=== PATIENT | male | born 1960 | race American Indian/Alaskan Native ===

== ENCOUNTER 2020-03-12 19:32 | Inpatient (IN) | payer OTHER ==
[2020-03-12] MEDS ORDERED: dexAMETHasone 20 MG/5 ML VIAL IV ONE (20:21)
[2020-03-12] MEDS ORDERED: IPRATROPIUM 0.02% NEBU 2.5 ML IH ONE (20:21)
[2020-03-12] MEDS ORDERED: MAGNESIUM SULFATE 2 GM/50 ML BAG IV ONE (20:21)
[2020-03-12] MEDS ORDERED: ALBUTEROL 2.5 MG/3 ML NEBU IH ONE ×2 (20:21→23:27)
--- NOTE | 2020-03-12 20:39 | Emergency Department Report ---
ED Shortness of Breath HPI - General Chief Complaint: Dyspnea/Respdistress Stated Complaint: DIFFICULTY IN BREATHING Time Seen by Provider: 03/12/20 20:32 Source: patient Mode of arrival: Ambulatory Limitations: No Limitations - History of Present Illness Initial Comments: Patient is 59 years old male with history of asthma and COPD. Patient presented to the ER complaining of shortness of breath and difficulty breathing and wheezing for the last 2 days. Patient stated that he has been using his albuterol with no improvement. Patient denies any chest pain, fever or chills. Patient stated that he has been intubated twice before. Patient with si gnificant respiratory distress and using accessory muscles. Patient immediately started on albuterol, Atrovent, Decadron and magnesium sulfate. MD Complaint: shortness of breath, cough -: days(s) (2) Severity: severe Known History Of: asthma - Related Data Allergies Allergy/AdvReac Type Severity Reaction Status Date / Time No Known Allergies Allergy Unverified 03/12/20 20:12 ED Review of Systems ROS: Stated complaint: DIFFICULTY IN BREATHING Other details as noted in HPI Comment: All other systems reviewed and negative Constitutional: denies: chills, fever Respiratory: cough, shortness of breath, SOB with exertion, SOB at rest, wheezing. denies: orthopnea, stridor Cardiovascular: denies: chest pain, palpitations Gastrointestinal: denies: abdominal pain, nausea, vomiting Musculoskeletal: denies: back pain Neurological: denies: headache, weakness ED Past Medical Hx - Past Medical History Previous Medical History?: Yes Hx Asthma: Yes Hx COPD: Yes - Surgical History Past Surgical History?: No - Social History Smoking Status: Current Some Day Smoker ED Physical Exam - General Limitations: No Limitations General appearance: alert, in distress - Head Head exam: Present: atraumatic, normocephalic, normal inspection - Eye Eye exam: Present: normal appearance, PERRL - ENT ENT exam: Present: normal exam, normal orophraynx, mucous membranes moist - Neck Neck exam: Present: normal inspection, full ROM. Absent: tenderness, meningismus - Respiratory Respiratory exam: Present: respiratory distress, wheezes, rales, rhonchi, accessory muscle use, decreased breath sounds, prolonged expiratory. Absent: stridor - Cardiovascular Cardiovascular Exam: Present: regular rate, normal rhythm, normal heart sounds - GI/Abdominal GI/Abdominal exam: Present: soft, normal bowel sounds. Absent: distended, tenderness, guarding, rebound, rigid, organomegaly, mass, bruit, pulsatile mass, hernia - Extremities Exam Extremities exam: Present: normal inspection, full ROM, normal capillary refill. Absent: tenderness, pedal edema, joint swelling, calf tenderness - Back Exam Back exam: Present: normal inspection, full ROM. Absent: CVA tenderness (R), CVA tenderness (L) - Neurological Exam Neurological exam: Present: alert, oriented X3, CN II-XII intact, normal gait - Psychiatric Psychiatric exam: Present: normal mood - Skin Skin exam: Present: warm, intact, normal color ED Course Vital Signs 03/12/20 03/12/20 20:44 20:53 Pulse Rate 85 Pulse Rate [ 89 Bilateral Throughout] Respiratory 20 Rate Respiratory 20 Rate [Bilateral Throughout] Blood Pressure 135/89 [Left] O2 Sat by Pulse 94 Oximetry ED Medical Decision Making - Lab Data Result diagrams: 03/12/20 20:33 03/12/20 20:33 - Radiology Data Radiology results: report reviewed - Medical Decision Making Patient is 59 years old male with history of asthma and COPD. Patient presented to the ER complaining of shortness of breath and difficulty breathing and wheezing for the last 2 days. Patient stated that he has been using his albuterol with no improvement. Patient denies any chest pain, fever or chills. Patient stated that he has been intubated twice before. Patient with significant respiratory distress and using accessory muscles. Patient immediately started on albuterol, Atrovent, Decadron and magnesium sulfate. Labs reviewed and is unremarkable. Chest x-ray showed early infiltrate in the right lower lobe. Patient received Rocephin and Zithromax. Patient stated that he is feeling better but his oxygen saturation on room air is in the upper 80s and lower 90. I discussed the patient with Dr. Adan, he agreed to admit the patient to medical service for further management. Critical Care Time: Yes Critical care time in (mins) excluding proc time.: 30 Critical care attestation.: If time is entered above; I have spent that time in minutes in the direct care of this critically ill patient, excluding procedure time. ED Disposition Clinical Impression: Right lower lobe pneumonia, Asthma exacerbation, Suspected COVID-19 virus infection Disposition: OP ADMIT IP TO THIS HOSP Is pt being admited?: Yes Condition: Stable Instructions: Bacterial Pneumonia (ED) Referrals: PRIMARY CARE, [Primary Care Provider] - 3-5 Days
[2020-03-12 20:44] LABS: Eosinophils # (Auto) 0.6 K/mm3 (0.0-0.4); Eosinophils % (Auto) 12.6 % (0.0-4.3); Hematocrit 40.3 % (35.5-45.6); Hemoglobin 13.1 gm/dl (11.8-15.2); Lymphocytes # (Auto) 1.7 K/mm3 (1.2-5.4); Lymphocytes % (Auto) 39.4 % (13.4-35.0); Mean Corpuscular HGB Conc 32 % (32-34); Mean Corpuscular Volume 92 fl (84-94); Monocytes # (Auto) 0.4 K/mm3 (0.0-0.8); Monocytes % (Auto) 8.1 % (0.0-7.3); Platelet Count 263 K/mm3 (140-440); Red Blood Count 4.37 M/mm3 (3.65-5.03); Red Cell Distribution Width 15.2 % (13.2-15.2)
[2020-03-12 21:03] LABS: Alanine Aminotransferase 17 units/L (7-56); Albumin 3.6 g/dL (3.9-5); BUN/Creatinine Ratio 6; Blood Urea Nitrogen 7 mg/dL (9-20); Calcium 8.6 mg/dL (8.4-10.2); Hemolysis Index 12
--- NOTE | 2020-03-12 22:09 | XRay Report ---
CHEST 1 VIEW 03/12/2020 9:25 PM INDICATION / CLINICAL INFORMATION: SOB. COMPARISON: None available. FINDINGS: SUPPORT DEVICES: None. HEART / MEDIASTINUM: No significant abnormality. LUNGS / PLEURA: There is minimal patchy parenchymal opacity in the left lung base. There small calcif ied granulomata in the right upper lobe. No pneumothorax. ADDITIONAL FINDINGS: No significant additional findings. IMPRESSION: 1. There is minimal patchy parenchymal opacity in the right lung base which could represent atelectas is or evolving pneumonia. Signer Name: Henrique Talley MD Signed: 03/12/2020 10:05 PM Workstation Name: [id number]
[2020-03-12] MEDS ORDERED: cefTRIAXone/NS 1 GM/50 ML 1 GM/50 ML BAG IV ONE (23:26)
[2020-03-12] MEDS ORDERED: AZITHROMYCIN 500 MG in SODIUM CHLORIDE 0.9% 250ML 250 ML IV ONE (23:26)
[2020-03-13] MEDS ORDERED: ACETAMINOPHEN 325 MG TAB PO PRN
[2020-03-13] MEDS ORDERED: MAGNESIUM HYDROXIDE (MOM) ORAL LIQD UDC PO PRN
[2020-03-13] MEDS ORDERED: ONDANSETRON 4 MG/2 ML INJ IV PRN
[2020-03-13] MEDS ORDERED: SODIUM CHLORIDE 0.9% 1000 ML 1,000 ML IV SCH
[2020-03-13] MEDS ORDERED: MORPHINE 2 MG/1 ML INJ IV PRN
[2020-03-13] MEDS ORDERED: cefTRIAXone/NS 2 GM/100 ML 2 GM/100 ML BAG IV SCH
--- NOTE | 2020-03-13 00:17 | History and Physical Report ---
History of Present Illness Date of examination: 03/13/20 Date of admission: 03/13/20 Chief complaint: Shortness of Breath History of present illness: 59-year-old male with known history of asthma COPD presenting to the emergency room today complaining of shortness of breath and wheezing which has been ongoing for the past 2 days. He has been using his albuterol inhaler at home without any significant improvement. He denies any fever or chills, no chest pain, no headache or dizziness, no nausea or vomiting, no abdominal pain, no hematuria or dysuria. Patient denies any sick contacts and no recent travel. Denies any contact with anyone with COVID-19. Upon arrival in the emergency room he was in mild respiratory distress using his accessory muscles. He was given a DuoNeb nebulizing treatments, IV magnesium sulfate and IV Decadron with some improvement. Patient has been intubated twice in the past. Work-up in the emergency room today, chest x-ray reveals: There is minimal patchy parenchymal opacity in the right lung base which could represent atelectasis or evolving pneumonia. Patient admitted with asthma exacerbation and or underlying pneumonia. We also rule out for COVID-19. Past History Past Medical History: COPD, other (Asthma) Past Surgical History: No surgical history Social history: no significant social history Family history: no significant family history Medications and Allergies Allergies Allergy/AdvReac Type Severity Reaction Status Date / Time No Known Allergies Allergy Verified 03/12/20 23:37 Active Meds: Active Medications Acetaminophen (Acetaminophen 325 Mg Tab) 650 mg PO Q4H PRN PRN Reason: Pain MILD(1-3)/Fever >100.5/VELEZ Albuterol/Ipratropium (Ipratropium/Albuterol Sulfate 3 Ml Ampul.Neb) 1 ampul IH Q6HRT YARELI Enoxaparin Sodium (Enoxaparin 40 Mg/0.4 Ml Inj) 40 mg SUB-Q QDAY@2200 YARELI; Protocol Azithromycin 500 mg/ Sodium (Chloride) 250 mls @ 250 mls/hr IV ONCE ONE; Protocol Stop: 03/13/20 00:25 Sodium Chloride (Nacl 0.9% 1000 Ml) 1,000 mls @ 75 mls/hr IV DIRECT YARELI Ceftriaxone Sodium (Rocephin/Ns 2 Gm/100 Ml) 2 gm in 100 mls @ 200 mls/hr IV Q24H YARELI; Protocol Azithromycin 500 mg/ Sodium (Chloride) 250 mls @ 250 mls/hr IV Q24H YARELI; Protocol Magnesium Hydroxide (Magnesium Hydroxide (Mom) Oral Liqd Udc) 30 ml PO Q4H PRN PRN Reason: Constipation Methylprednisolone Sodium Succinate (Methylprednisolone Sod Succinate 40 Mg/1 Ml Inj) 40 mg IV Q8HR YARELI Morphine Sulfate (Morphine 2 Mg/1 Ml Inj) 2 mg IV Q4H PRN PRN Reason: Pain, Moderate (4-6) Ondansetron HCl (Ondansetron 4 Mg/2 Ml Inj) 4 mg IV Q8H PRN PRN Reason: Nausea And Vomiting Sodium Chloride (Sodium Chloride 0.9% 10 Ml Flush Syringe) 10 ml IV BID YARELI Sodium Chloride (Sodium Chloride 0.9% 10 Ml Flush Syringe) 10 ml IV PRN PRN PRN Reason: LINE FLUSH Review of Systems Constitutional: no fever, no chills Ears, nose, mouth and throat: no nasal congestion, no sore throat Cardiovascular: no chest pain, no palpitations Respiratory: cough, shortness of breath, wheezing Gastrointestinal: no abdominal pain, no nausea, no vomiting, no diarrhea Genitourinary Male: no dysuria, no hematuria, no flank pain, no nocturia Musculoskeletal: no neck pain, no low back pain Integumentary: no rash, no pruritis Neurological: no headaches, no confusion Psychiatric: no anxiety, no depression Exam - Constitutional Vitals: Temp Pulse Resp BP Pulse Ox 89 20 135/89 94 03/12/20 20:53 03/12/20 20:53 03/12/20 20:44 03/12/20 20:44 General appearance: Present: no acute distress, well-nourished - EENT Eyes: Present: PERRL, EOM intact. Absent: scleral icterus ENT: hearing intact, clear oral mucosa, dentition normal - Neck Neck: Present: supple, normal ROM - Respiratory Respiratory effort: normal Respiratory: bilateral: wheezing - Cardiovascular Rhythm: regular Heart Sounds: Present: S1 & S2. Absent: gallop, systolic murmur, diastolic murmur, rub - Extremities Extremities: no ischemia, pulses intact, pulses symmetrical, No edema, normal temperature, normal color, Full ROM Peripheral Pulses: within normal limits - Abdominal General gastrointestinal: Present: soft, non-tender, non-distended, normal bowel sounds. Absent: mass - Integumentary Integumentary: Present: clear, warm, dry. Absent: rash - Musculoskeletal Musculoskeletal: strength equal bilaterally - Psychiatric Psychiatric: appropriate mood/affect, intact judgment & insight, memory intact, cooperative - Neurologic Neurologic: CNII-XII intact, no focal deficits, moves all extremities Results - Labs CBC & Chem 7: 03/12/20 20:33 03/12/20 20:33 Labs: Abnormal lab results 03/12/20 03/12/20 Range/Units 20:33 20:33 WBC 4.4 L (4.5-11.0) K/mm3 Lymph % (Auto) 39.4 H (13.4-35.0) % [place] % (Auto) 8.1 H (0.0-7.3) % Eos % (Auto) 12.6 H (0.0-4.3) % Eos # (Auto) 0.6 H (0.0-0.4) K/mm3 Seg Neutrophils % 38.9 L (40.0-70.0) % Seg Neutrophils # 1.7 L (1.8-7.7) K/mm3 Chloride 108.1 H (98-107) mmol/L BUN 7 L (9-20) mg/dL Glucose 108 H (75-100) mg/dL Total Protein 6.0 L (6.3-8.2) g/dL Albumin 3.6 L (3.9-5) g/dL Assessment and Plan - Patient Problems (1) Asthma exacerbation Current Visit: Yes Status: Acute Plan to address problem: Patient placed on nebulizing treatments and IV steroids. We will also keep O2 saturation greater or equal to 94%. (2) Right lower lobe pneumonia Current Visit: Yes Status: Acute Plan to address problem: We will place patient on empiric IV antibiotics. Will await culture results. (3) Suspected COVID-19 virus infection Current Visit: Yes Status: Acute Plan to address problem: We will place patient on isolation precautions. We await COVID-19 testing. Consult placed to infectious disease for evaluation. (4) DVT prophylaxis Current Visit: Yes Status: Acute Plan to address problem: Patient placed on subcutaneous Lovenox. (5) Full code status Current Visit: Yes Status: Acute Plan to address problem: Patient is a full code
[2020-03-13] MEDS: IPRATROPIUM/ALBUTEROL SULFATE 3 ML AMPUL.NEB IH SCH ×5 (01:23→19:41)
[2020-03-13 04:56] LABS: C-Reactive Protein 0.2 mg/dL (0.00-1.30)
[2020-03-13] MEDS ORDERED: methylPREDNISolone Sod Succinate 40 MG/1 ML INJ IV SCH ×2 (06:00→14:00)
--- NOTE | 2020-03-13 13:44 | Consultation ---
History of Present Illness Consult date: 03/13/20 Requesting physician: MEREDITH JACOBO Reason for consult: hypoxemia History of present illness: 59 y/o male admitted with acute respiratory failure, concern for COVID. Has a history of asthma and has been intubated before. Has never been seen at this facility. Past History Past Medical History: COPD, other (Asthma) Past Surgical History: No surgical history Social history: no significant social history Family history: no significant family history Medications and Allergies Allergies Allergy/AdvReac Type Severity Reaction Status Date / Time No Known Allergies Allergy Verified 03/12/20 23:37 Active Meds: Active Medications Acetaminophen (Acetaminophen 325 Mg Tab) 650 mg PO Q4H PRN PRN Reason: Pain MILD(1-3)/Fever >100.5/VELEZ Albuterol/Ipratropium (Ipratropium/Albuterol Sulfate 3 Ml Ampul.Neb) 1 ampul IH Q6HRT YARELI Last Admin: 03/13/20 08:32 Dose: 1 ampul Documented by: Azithromycin (Azithromycin 250 Mg Tab) 500 mg PO QHS YARELI Stop: 03/16/20 22:01 Enoxaparin Sodium (Enoxaparin 40 Mg/0.4 Ml Inj) 40 mg SUB-Q QDAY@2200 YARELI; Protocol Sodium Chloride (Nacl 0.9% 1000 Ml) 1,000 mls @ 75 mls/hr IV DIRECT YARELI Ceftriaxone Sodium (Rocephin/Ns 2 Gm/100 Ml) 2 gm in 100 mls @ 200 mls/hr IV Q24HR@2200 YARELI; Protocol Last Admin: 03/13/20 05:39 Dose: 200 mls/hr Documented by: Magnesium Hydroxide (Magnesium Hydroxide (Mom) Oral Liqd Udc) 30 ml PO Q4H PRN PRN Reason: Constipation Methylprednisolone Sodium Succinate (Methylprednisolone Sod Succinate 40 Mg/1 Ml Inj) 60 mg IV Q6HR YARELI Morphine Sulfate (Morphine 2 Mg/1 Ml Inj) 2 mg IV Q4H PRN PRN Reason: Pain, Moderate (4-6) Ondansetron HCl (Ondansetron 4 Mg/2 Ml Inj) 4 mg IV Q8H PRN PRN Reason: Nausea And Vomiting Sodium Chloride (Sodium Chloride 0.9% 10 Ml Flush Syringe) 10 ml IV BID YARELI Sodium Chloride (Sodium Chloride 0.9% 10 Ml Flush Syringe) 10 ml IV PRN PRN PRN Reason: LINE FLUSH Physical Examination Vital signs: Vital Signs Pulse Resp BP Pulse Ox 85 20 135/89 94 03/12/20 20:44 03/12/20 20:44 03/12/20 20:44 03/12/20 20:44 Results - Laboratory Findings CBC and BMP: 03/12/20 20:33 12 00:31 PT/INR, D-dimer D-Dimer 180.27 ng/mlDDU (0-234) 03/13/20 00:31 Abnormal lab findings: Abnormal Labs 03/12/20 03/12/20 12 20:33 20:33 00:31 WBC 4.4 L Lymph % (Auto) 39.4 H [place] % (Auto) 8.1 H Eos % (Auto) 12.6 H Eos # (Auto) 0.6 H Seg Neutrophils % 38.9 L Seg Neutrophils # 1.7 L Chloride 108.1 H BUN 7 L Glucose 108 H 157 H Lactate Dehydrogenase 222 H Total Protein 6.0 L Albumin 3.6 L Assessment and Plan 59 y/o male with acute respiratory failure with prior history of asthma and prior intubations also concern for possible COVID 1. Prone as tolerated during the day, and sleep prone at night 2. Agree with steroids but increased to 60q6 3. If puffers are available please start albuterol q4 hours scheduled puffers. If COVID is negative will put on scheduled nebs
[2020-03-13] MEDS ORDERED: methylPREDNISolone Sod Succinate 125 MG/2 ML INJ IV SCH (14:00)
--- NOTE | 2020-03-13 15:00 | Event Note ---
Date: 03/13/20 59-year-old male with asthma/COPD admitted with cough and wheezing. COVID-19 test is negative, no fever or leukocytosis. Ferritin, CRP also normal. Defer management to pulmonary. ID will sign off. Deysi Fagan MD, FACP [facility] ([facility] O: [phone] F: [phone]
[2020-03-13] MEDS: methylPREDNISolone Sod Succinate 125 MG/2 ML INJ IV SCH ×2 (15:53→21:10)
--- NOTE | 2020-03-13 16:40 | Progress Note ---
Assessment and Plan - Patient Problems (1) Suspected COVID-19 virus infection Current Visit: Yes Status: Acute Plan to address problem: 03/13 COVID-19 PCR negative (2) Asthma exacerbation Current Visit: Yes Status: Acute Plan to address problem: Pulmonary hygiene Nebulizer treatments IV steroids Scheduled albuterol Continuous SPO2 monitoring Pulmonology consulted, patient recommendations (3) Right lower lobe pneumonia Current Visit: Yes Status: Acute Plan to address problem: 03/12 CXR shows minimal patchy parenchymal opacity in the right lung base which could represent atelectasis or evolving pneumonia Empiric antibiotics 03/12 culture pending (4) Tobacco abuse Current Visit: Yes Status: Chronic Plan to address problem: Tobacco cessation education Consider NicoDerm Patch if needed while inpatient (5) Cocaine abuse Current Visit: Yes Status: Chronic Plan to address problem: Patient states that he last used last week and uses occasionally Monitor for signs symptoms of withdrawal Supportive care Cessation education completed (6) COPD (chronic obstructive pulmonary disease) Current Visit: Yes Status: Chronic Plan to address problem: Patient has a history of COPD Continue home pulmonary regimen when available Patient states that he has a skip locator that follows him, will need to follow-up upon discharge (7) DVT prophylaxis Current Visit: Yes Status: Acute Plan to address problem: Lovenox subcu SCD to bilateral lower extremities while in bed (8) Hyperchloremia Current Visit: Yes Status: Acute Plan to address problem: Presented with a chloride of 108.1 Trend BMP S/p maintenance IV fluids normal saline (9) Leukopenia Current Visit: Yes Status: Acute Plan to address problem: 03/12 WBC 4.4 Trend CBC History Interval history: 59-year-old male with asthma with two past intubations, current cocaine user (last use last week), tobacco abuse (less than 5 cigarettes/day) and COPD who presented to the emergency room on 03/12 complaining of shortness of breath and wheezing which has been ongoing for the past 2 days and reports using his albuterol inhaler at home without any significant improvement. Upon arrival in the emergency room he was in mild respiratory distress using his accessory musc les and was given DuoNeb nebulizing treatments, IV magnesium sulfate and IV Decadron with some improvement. Work-up in the emergency room included a chest x-ray which showed minimal patchy parenchymal opacity in the right lung base which could represent atelectasis or evolving pneumonia. Patient was admitted to the hospital service with asthma exacerbation and underlying pneumonia and was a Covid PUI. Infectious disease and pulmonology were consulted. On 03/13 patient's COVID-19 PCR resulted as negative. This time my examination patient is on room air and states that he feels much better. Patient is ready to go home. Hospitalist Physical - Constitutional Vitals: Temp Pulse Resp BP Pulse Ox 98.3 F 85 20 131/80 99 03/13/20 05:41 03/13/20 14:55 03/13/20 15:40 03/13/20 05:41 03/13/20 15:40 General appearance: Present: no acute distress, well-nourished - EENT Eyes: Present: PERRL, EOM intact ENT: clear oral mucosa, poor dentition - Neck Neck: Present: supple, normal ROM - Respiratory Respiratory effort: normal Respiratory: bilateral: wheezing - Cardiovascular Rhythm: regular Heart Sounds: Present: S1 & S2. Absent: systolic murmur, diastolic murmur - Extremities Extremities: no ischemia, pulses intact, pulses symmetrical, No edema, normal temperature, normal color, Full ROM Peripheral Pulses: within normal limits - Abdominal General gastrointestinal: soft, non-tender, non-distended, normal bowel sounds - Integumentary Integumentary: Present: clear, warm, dry - Psychiatric Psychiatric: appropriate mood/affect, cooperative - Neurologic Neurologic: CNII-XII intact, no focal deficits, moves all extremities - Allied Health Allied health notes reviewed: nursing Results - Labs CBC & Chem 7: 03/12/20 20:33 03/13/20 00:31 Labs: Laboratory Last Values WBC 4.4 K/mm3 (4.5-11.0) L 03/12/20 20:33 RBC 4.37 M/mm3 (3.65-5.03) 03/12/20 20:33 Hgb 13.1 gm/dl (11.8-15.2) 03/12/20 20:33 Hct 40.3 % (35.5-45.6) 03/12/20 20:33 MCV 92 fl (84-94) 03/12/20 20:33 MCH 30 pg (28-32) 03/12/20 20:33 MCHC 32 % (32-34) 03/12/20 20:33 RDW 15.2 % (13.2-15.2) 03/12/20 20:33 Plt Count 263 K/mm3 (140-440) 03/12/20 20:33 Lymph % (Auto) 39.4 % (13.4-35.0) H 03/12/20 20:33 [place] % (Auto) 8.1 % (0.0-7.3) H 03/12/20 20:33 Eos % (Auto) 12.6 % (0.0-4.3) H 03/12/20 20:33 Baso % (Auto) 1.0 % (0.0-1.8) 03/12/20 20: Lymph # (Auto) 1.7 K/mm3 (1.2-5.4) 03/12/20 20: [place] # (Auto) 0.4 K/mm3 (0.0-0.8) 03/12/20 20: Eos # (Auto) 0.6 K/mm3 (0.0-0.4) H 03/12/20 20: Baso # (Auto) 0.0 K/mm3 (0.0-0.1) 03/12/20 20: Seg Neutrophils % 38.9 % (40.0-70.0) L 03/12/20 20: Seg Neutrophils # 1.7 K/mm3 (1.8-7.7) L 03/12/20 20:33 D-Dimer 180.27 ng/mlDDU (0-234) 03/13/20 00:31 Sodium 140 mmol/L (137-145) 03/12/20 20:33 Potassium 3.6 mmol/L (3.6-5.0) 03/12/20 20: Chloride 108.1 mmol/L (98-107) H 03/12/20 20:33 Carbon Dioxide 22 mmol/L (22-30) 03/12/20 20:33 Anion Gap 14 mmol/L 03/12/20 20:33 BUN 7 mg/dL (9-20) L 03/12/20 20:33 Creatinine 1.2 mg/dL (0.8-1.3) 03/12/20 20:33 Estimated GFR > 60 ml/min 03/12/20 20: BUN/Creatinine Ratio 6 % 03/12/20 20:33 Glucose 157 mg/dL (75-100) H 03/13/20 00:31 Calcium 8.6 mg/dL (8.4-10.2) 03/12/20 20:33 Ferritin 132.2 ng/mL (30.0-300.0) 03/13/20 00:31 Total Bilirubin 0.20 mg/dL (0.1-1.2) 03/12/20 20:33 AST 20 units/L (5-40) 03/12/20 20:33 ALT 17 units/L (7-56) 03/12/20 20:33 Alkaline Phosphatase 74 units/L (35-129) 03/12/20 20:33 Lactate Dehydrogenase 222 units/L (91-180) H 03/13/20 00:31 C-Reactive Protein 0.20 mg/dL (0.00-1.30) 03/13/20 00:31 Total Protein 6.0 g/dL (6.3-8.2) L 03/12/20 20:33 Albumin 3.6 g/dL (3.9-5) L 03/12/20 20:33 Albumin/Globulin Ratio 1.5 % 03/12/20 20:33 Procalcitonin < 0.05 ng/mL (<0.15) 03/13/20 00:31 Coronavirus (PCR) Negative (Negative) 03/13/20 Unknown Microbiology: Microbiology 03/13/20 02:31 Peripheral/Venous Blood Culture - Preliminary Culture in Progress 03/13/20 00:31 Peripheral/Venous Blood Culture - Preliminary Culture in Progress Almanza/IV: IV Catheter Type [Left Hand] INT / Saline Lock Active Medications - Current Medications Current Medications: Generic Name Dose Route Start Last Admin Trade Name Freq PRN Reason Stop Dose Admin Acetaminophen 650 mg 03/13/20 00:00 Acetaminophen 325 Mg Tab PO Q4H PRN Pain MILD(1-3)/Fever >100.5/VELEZ Albuterol/Ipratropium 1 ampul 03/13/20 02:00 03/13/20 14:55 Ipratropium/Albuterol Sulfate 3 Ml Ampul.Neb IH 1 ampul Q6HRT YARELI Administration Azithromycin 500 mg 03/13/20 22:00 Azithromycin 250 Mg Tab PO 03/16/20 22:01 QHS YARELI Enoxaparin Sodium 40 mg 03/13/20 22:00 Enoxaparin 40 Mg/0.4 Ml Inj SUB-Q QDAY@2200 [facility] Protocol Sodium Chloride 1,000 mls @ 75 mls/hr 03/13/20 00:00 Nacl 0.9% 1000 Ml IV DIRECT YARELI Ceftriaxone Sodium 2 gm in 100 mls @ 200 mls/hr 03/13/20 00:00 03/13/20 05:39 Rocephin/Ns 2 Gm/100 Ml IV 200 mls/hr Q24HR@2200 [facility] Administration Protocol Magnesium Hydroxide 30 ml 03/13/20 00:00 Magnesium Hydroxide (Mom) Oral Liqd Udc PO Q4H PRN Constipation Methylprednisolone Sodium Succinate 60 mg 03/13/20 14:00 03/13/20 15:53 Methylprednisolone Sod Succinate 125 Mg/2 Ml Inj IV 60 mg Q6HR [facility] Administration Morphine Sulfate 2 mg 03/13/20 00:00 Morphine 2 Mg/1 Ml Inj IV Q4H PRN Pain, Moderate (4-6) Ondansetron HCl 4 mg 03/13/20 00:00 Ondansetron 4 Mg/2 Ml Inj IV Q8H PRN Nausea And Vomiting Sodium Chloride 10 ml 03/13/20 10:00 03/13/20 15:52 Sodium Chloride 0.9% 10 Ml Flush Syringe IV Not Given BID [facility] Sodium Chloride 10 ml 03/13/20 00:00 Sodium Chloride 0.9% 10 Ml Flush Syringe IV PRN PRN LINE FLUSH
[2020-03-13] MEDS ORDERED: ENOXAPARIN 40 MG/0.4 ML INJ SUB-Q SCH (22:00)
[2020-03-13] MEDS ORDERED: AZITHROMYCIN 500 MG in SODIUM CHLORIDE 0.9% 250ML 250 ML IV SCH (22:00)
[2020-03-13] MEDS ORDERED: AZITHROMYCIN 250 MG TAB PO SCH (22:00)
[2020-03-14] MEDS: methylPREDNISolone Sod Succinate 125 MG/2 ML INJ IV SCH ×3 (00:24→10:38)
[2020-03-14] MEDS: IPRATROPIUM/ALBUTEROL SULFATE 3 ML AMPUL.NEB IH SCH ×4 (02:31→21:39)
[2020-03-14 06:32] LABS: Hematocrit 37.3 % (35.5-45.6); Hemoglobin 12.3 gm/dl (11.8-15.2); Mean Corpuscular HGB Conc 33 % (32-34); Mean Corpuscular Volume 90 fl (84-94); Platelet Count 281 K/mm3 (140-440); Red Blood Count 4.13 M/mm3 (3.65-5.03); Red Cell Distribution Width 15.2 % (13.2-15.2)
[2020-03-14 06:42] LABS: BUN/Creatinine Ratio 12; Blood Urea Nitrogen 13 mg/dL (9-20); Hemolysis Index 7; INR 1.01 (0.87-1.13)
[2020-03-14 10:09] LABS: Total Cells Counted 100
[2020-03-14 10:11] LABS: RBC Morphology Normal
[2020-03-14 10:12] LABS: Platelet Estimate Consistent w Auto
[2020-03-14] MEDS ORDERED: NICOTINE 7 MG/24 HR PATCH TD SCH (12:00)
--- NOTE | 2020-03-14 12:55 | Progress Note ---
Assessment and Plan 59 y/o male with acute respiratory failure with prior history of asthma and prior intubations also concern for possible COVID 1. COVID negative 2. If IMS wants to discharge would send out on rapid steroid taper and have him resume his home asthma regimen 3. If remains in house please place on BID pulmicort and brovana therapy. Subjective Date of service: 03/14/20 Interval history: COVID is negative. Asthma appears to be stable now. IMS wants to consider discharge. Objective Vital Signs - 12hr 03/14/20 03/14/20 03/14/20 02:34 04:07 07:50 Temperature 98.4 F Pulse Rate 83 Pulse Rate [ 88 82 Bilateral Throughout] Respiratory 20 Rate Respiratory 20 18 Rate [Bilateral Throughout] Blood Pressure 133/79 O2 Sat by Pulse 95 Oximetry CBC and BMP: 03/14/20 05:23 03/14/20 05:23 ABG, PT/INR, D-dimer: PT/INR, D-dimer PT 13.1 Sec. (12.2-14.9) 03/14/20 05:23 INR 1.01 (0.87-1.13) 03/14/20 05:23 D-Dimer 180.27 ng/mlDDU (0-234) 03/13/20 00:31 Abnormal lab findings: Abnormal Labs 03/12/20 03/12/20 03/13/20 20:33 20:33 00:31 WBC 4.4 L Lymph % (Auto) 39.4 H [place] % (Auto) 8.1 H Eos % (Auto) 12.6 H Eos # (Auto) 0.6 H Seg Neutrophils % 38.9 L Lymphocytes % (Manual) Seg Neutrophils # 1.7 L Seg Neutrophils # Man Lymphocytes # (Manual) Chloride 108.1 H BUN 7 L Glucose 108 H 157 H Lactate Dehydrogenase 222 H Total Protein 6.0 L Albumin 3.6 L 03/14/20 03/14/20 05:23 05:23 WBC Lymph % (Auto) [place] % (Auto) Eos % (Auto) Eos # (Auto) Seg Neutrophils % Lymphocytes % (Manual) 3.0 L Seg Neutrophils # Seg Neutrophils # Man 9.3 H Lymphocytes # (Manual) 0.3 L Chloride BUN Glucose 176 H Lactate Dehydrogenase Total Protein Albumin
--- NOTE | 2020-03-14 13:28 | Discharge Summary ---
Providers - Providers Date of Admission: 03/12/20 23:35 Attending physician: PADMINI VILLEDA MD 03/13/20 00:00 Consult to Physician [CONS] Routine Comment: Consulting Provider: GO SEGURA Physician Instructions: Reason For Exam: Asthma, Pneumonia R/O Covid 19 03/13/20 08:57 Consult to Physician [CONS] Routine Comment: Consulting Provider: YESI ASHLEY Physician Instructions: Reason For Exam: COVID PUI Primary care physician: [employer]SULTANT Hospitalization Condition: Stable Hospital course: 59-year-old male with asthma with two past intubations, current cocaine user (last use last week), tobacco abuse (less than 5 cigarettes/day) and COPD who presented to the emergency room on 03/12 complaining of shortness of breath and wheezing which has been ongoing for the past 2 days and reports using his albuterol inhaler at home without any significant improvement. Upon arrival in the emergency room he was in mild respiratory distress using his accessory muscles and was given DuoNeb nebulizing treatments, IV magnesium sulfate and IV Decadron with some improvement. Work-up in the emergency room included a chest x-ray which showed minimal patchy parenchymal opacity in the right lung base which could represent atelectasis or evolving pneumonia. Patient was admitted to the hospital service with asthma exacerbation and underlying pneumonia and was a Covid PUI. Infectious disease and pulmonology were consulted. On 03/13 patient's COVID-19 PCR resulted as negative. Patient will be discharged home with p.o. antibiotics and p.o. steroid taper. He will need to follow-up with his primary care physician and allergy and immunology specialist within 1 to 2 weeks of discharge. Patient verbalized understanding. Assessment and Plan - Patient Problems (1) Suspected COVID-19 virus infection Current Visit: Yes Status: Ruled out Plan to address problem: 03/13 COVID-19 PCR negative (2) Asthma exacerbation Current Visit: Yes Status: Acute Plan to address problem: Resume home pulmonary regimen Will be discharged with a steroid taper (3) Right lower lobe pneumonia Current Visit: Yes Status: Acute Plan to address problem: 03/12 CXR shows minimal patchy parenchymal opacity in the right lung base which could represent atelectasis or evolving pneumonia Will be discharged with p.o. antibiotics 03/12 culture pending (4) Tobacco abuse Current Visit: Yes Status: Chronic Plan to address problem: Tobacco cessation education Continue use of [id number] NicoDerm patch to aid in cessation (5) Cocaine abuse Current Visit: Yes Status: Chronic Plan to address problem: Patient states that he last used last week and uses occasionally Strongly encourage cessation (6) COPD (chronic obstructive pulmonary disease) Current Visit: Yes Status: Chronic Plan to address problem: Patient has a history of COPD Continue home pulmonary regimen Will need to follow-up with home pulmanologist (8) Hyperchloremia Current Visit: Yes Status: Resolved Plan to address problem: Presented with a chloride of 108.1, Cl 104.8 (9) Leukopenia Current Visit: Yes Status: Resolved Plan to address problem: 03/12 WBC 4.4, 03/14 WBC 9.8 Disposition: DC-01 TO HOME OR SELFCARE Time spent for discharge: 35 Core Measure Documentation - Palliative Care Palliative Care/ Comfort Measures: Not Applicable - Core Measures Any of the following diagnoses?: none Exam - Constitutional Vitals: Temp Pulse Resp BP Pulse Ox 98.4 F 82 18 133/79 95 03/14/20 04:07 03/14/20 07:50 03/14/20 07:50 03/14/20 04:07 03/14/20 04:07 General appearance: Present: no acute distress - EENT Eyes: Present: PERRL, EOM intact ENT: hearing decreased, poor dentition - Neck Neck: Present: supple, normal ROM - Respiratory Respiratory effort: normal Respiratory: bilateral: wheezing - Cardiovascular Rhythm: regular Heart Sounds: Present: S1 & S2. Absent: systolic murmur, diastolic murmur - Extremities Extremities: no ischemia, pulses intact, pulses symmetrical, No edema, normal temperature, normal color, Full ROM Peripheral Pulses: within normal limits - Abdominal General gastrointestinal: Present: soft, non-tender, non-distended, normal bowel sounds - Integumentary Integumentary: Present: clear, warm, dry - Musculoskeletal Musculoskeletal: strength equal bilaterally - Psychiatric Psychiatric: appropriate mood/affect, cooperative - Neurologic Neurologic: CNII-XII intact, no focal deficits, moves all extremities - Allied Health Allied health notes reviewed: nursing Plan Activity: advance as tolerated Diet: regular Special Instructions: smoking cessation, other (cocaine abuse cessation) Additional Instructions: Present to nearest emergency department contact your primary care physician for experience worsening symptoms. Follow-up with your primary care physician and allergy and immunology specialist upon discharge. Tobacco and cocaine cessation strongly encouraged. Follow up with: PRIMARY CARE, [Primary Care Provider] - 3-5 Days Prescriptions: Azithromycin [Zithromax TAB] 500 mg PO QHS #2 tablet
[2020-03-14 15:58] VITALS: BP 145/90
== END 2020-03-14 17:30 | disposition home or self-care (01) | DRG 190 ==
LOC: ED 19:32 → 3A 23:35
PROVIDERS: ADMIT Internal Medicine Geriatric Medicine; ATTEND Internal Medicine
DX: J44.0 Chronic obstructive pulmonary disease with (acute) lower respiratory infection (principal); J18.1 Lobar pneumonia, unspecified organism; J45.901 Unspecified asthma with (acute) exacerbation; F17.210 Nicotine dependence, cigarettes, uncomplicated; Z20.828 Contact with and (suspected) exposure to other viral communicable diseases; D72.819 Decreased white blood cell count, unspecified; E87.8 Other disorders of electrolyte and fluid balance, not elsewhere classified; F14.10 Cocaine abuse, uncomplicated; Z71.6 Tobacco abuse counseling
CPT/HCPCS: 36415; 71045; 80048; 80053; 82728; 82947; 83615; 84145; 85007; 85025; 85379; 85610; 86140; 87040; 94640; 94644; 96365; 96367; 96375; 99406; G0378; J0456; J0696; J1100; J1650; J2920; J2930; J3475; J7050; U0003

== ENCOUNTER 2020-04-02 10:08 | Emergency (ER) | payer SELFPAY ==
[2020-04-02] MEDS ORDERED: ALBUTEROL 2.5 MG/3 ML NEBU IH ONE (10:40)
[2020-04-02] MEDS ORDERED: IPRATROPIUM 0.02% NEBU 2.5 ML IH ONE (10:40)
--- NOTE | 2020-04-02 11:05 | Emergency Department Report ---
ED Asthma HPI - General Chief Complaint: Dyspnea/Respdistress Stated Complaint: DIFFICULTY BREATHING Time Seen by Provider: 04/02/20 10:33 Source: patient, EMS Mode of arrival: Stretcher Limitations: No Limitations - History of Present Illness MD Complaint: shortness of breath, wheezing -: week(s) (1) Asthma History: history of frequent attac, history of prior ED visit (admitted 03/12/20) Severity: moderate Context: none known Associated Symptoms: dry cough. denies: fever, chest pain, hemoptysis, leg edema, syncope - Related Data Current Asthma Therapy: inhaled bronchodilator, other (received 2.5mg Albuterol, 125mg Solumedrol and 2g mg prior to arrival ) Previous Rx's Medication Instructions Recorded Last Taken Type Acetaminophen [Acetaminophen TAB] 650 mg PO Q4H PRN tablet 03/14/20 Unknown Rx Azithromycin 500 mg PO DAILY #3 tablet 03/14/20 Unknown Rx Azithromycin [Zithromax TAB] 500 mg PO QHS #2 tablet 03/14/20 Unknown Rx Magnesium Hydroxide [Milk of 30 ml PO Q4H PRN oral.liqd 03/14/20 Unknown Rx Magnesia] Nicotine [Habitrol] 7 mg TD QDAY patch 03/14/20 Unknown Rx predniSONE 10 mg PO QDAY #21 tab 03/14/20 Unknown Rx ALBUTEROL NEB's [Proventil 0.083% 5 mg IH TID PRN #20 neb 04/02/20 Unknown Rx NEBS] Benzonatate [Tessalon Perles] 100 mg PO Q8HR #10 capsule 04/02/20 Unknown Rx DOXYCYCLINE Hyclate [Vibramycin 100 mg PO Q12HR #14 capsule 04/02/20 Unknown Rx CAP] predniSONE 10 mg PO .TAPER #21 tab 04/02/20 Unknown Rx Allergies Allergy/AdvReac Type Severity Reaction Status Date / Time No Known Allergies Allergy Verified 04/02/20 10:42 ED Review of Systems ROS: Stated complaint: DIFFICULTY BREATHING Other details as noted in HPI Comment: All other systems reviewed and negative ED Past Medical Hx - Past Medical History Hx Congestive Heart Failure: No Hx Diabetes: No Hx Asthma: Yes Hx COPD: Yes - Social History Smoking Status: Current Every Day Smoker Substance Use Type: Alcohol, Cocaine - Medications Home Medications: Home Medications Medication Instructions Recorded Confirmed Last Taken Type Acetaminophen [Acetaminophen TAB] 650 mg PO Q4H PRN tablet 03/14/20 Unknown Rx Azithromycin 500 mg PO DAILY #3 tablet 03/14/20 Unknown Rx Azithromycin [Zithromax TAB] 500 mg PO QHS #2 tablet 03/14/20 Unknown Rx Magnesium Hydroxide [Milk of 30 ml PO Q4H PRN oral.liqd 03/14/20 Unknown Rx Magnesia] Nicotine [Habitrol] 7 mg TD QDAY patch 03/14/20 Unknown Rx predniSONE 10 mg PO QDAY #21 tab 03/14/20 Unknown Rx ALBUTEROL NEB's [Proventil 0.083% 5 mg IH TID PRN #20 neb 04/02/20 Unknown Rx NEBS] Benzonatate [Tessalon Perles] 100 mg PO Q8HR #10 capsule 04/02/20 Unknown Rx DOXYCYCLINE Hyclate [Vibramycin 100 mg PO Q12HR #14 capsule 04/02/20 Unknown Rx CAP] predniSONE 10 mg PO .TAPER #21 tab 04/02/20 Unknown Rx ED Physical Exam - General Limitations: No Limitations General appearance: alert, in no apparent distress - Head Head exam: Present: atraumatic, normocephalic - Eye Eye exam: Present: normal appearance - ENT ENT exam: Present: mucous membranes moist - Neck Neck exam: Present: normal inspection - Respiratory Respiratory exam: Present: respiratory distress, wheezes, accessory muscle use, prolonged expiratory. Absent: normal lung sounds bilaterally, rales, rhonchi, chest wall tenderness, decreased breath sounds - Cardiovascular Cardiovascular Exam: Present: regular rate, normal rhythm, normal heart sounds. Absent: systolic murmur, diastolic murmur, rubs, gallop - GI/Abdominal GI/Abdominal exam: Present: soft, normal bowel sounds. Absent: distended, tenderness, guarding, rebound, rigid - Rectal Rectal exam: Present: deferred - Extremities Exam Extremities exam: Present: normal inspection - Back Exam Back exam: Present: normal inspection - Neurological Exam Neurological exam: Present: alert, oriented X3 - Psychiatric Psychiatric exam: Present: normal affect, normal mood - Skin Skin exam: Present: warm, dry, intact, normal color. Absent: rash ED Course Vital Signs 04/02/20 04/02/20 04/02/20 10:30 11:00 11:23 Temperature 98.7 F Pulse Rate 95 H 84 Pulse Rate [ 92 H Anterior Bilateral Throughout] Respiratory 15 15 Rate Respiratory 18 Rate [Anterior Bilateral Throughout] Blood Pressure 140/101 Blood Pressure 140/97 [Left] O2 Sat by Pulse 97 94 Oximetry 04/02/20 04/02/20 04/02/20 11:30 12:00 12:30 Temperature Pulse Rate 85 82 79 Pulse Rate [ Anterior Bilateral Throughout] Respiratory 16 13 14 Rate Respiratory Rate [Anterior Bilateral Throughout] Blood Pressure 143/95 148/89 157/85 Blood Pressure [Left] O2 Sat by Pulse 93 94 95 Oximetry 04/02/20 13:00 Temperature Pulse Rate 79 Pulse Rate [ Anterior Bilateral Throughout] Respiratory 13 Rate Respiratory Rate [Anterior Bilateral Throughout] Blood Pressure 156/81 Blood Pressure [Left] O2 Sat by Pulse 92 Oximetry - Reevaluation(s) Reevaluation #1: 04/02/20 13:26 Patient received a hour-long neb treatment. States he feels much improved. Wheezing is resolved and his O2 saturation on room air is 93 to 94%. ED Medical Decision Making - Lab Data Result diagrams: 04/02/20 10:51 04/02/20 10:51 - Radiology Data [facility] [address] [place] [address] XRay Report Signed Patient: JAXSON ARAMBULA MR#: [id number] : 1960 Acct:[id number] Age/Sex: 59 / M ADM Date: 04/02/20 Loc: ED Attending Dr: Ordering Physician: DANIEL MORAES MD Date of Service: 04/02/20 Procedure(s): XR chest 1V ap Accession Number(s): [id number] cc: DANIEL MORAES MD Fluoro Time In Minutes: CHEST 1 VIEW, 04/02/2020 11:01 AM CLINICAL INFORMATION/INDICATION: Respiratory distress COMPARISON: Chest radiograph, 03/12/2020 FINDINGS: SUPPORT DEVICES: None. HEART: The cardiac silhouette is normal in size. LUNGS/PLEURA: The lungs are clear of focal airspace disease or significant pleural effusion. ADDITIONAL FINDINGS: No additional acute findings. IMPRESSION: 1. No evidence of acute cardiopulmonary process. Signer Name: Janel Do MD Signed: 04/02/2020 11:14 AM Workstation Name: [id number] Critical Care Time: Yes (30) Critical care attestation.: If time is entered above; I have spent that time in minutes in the direct care of this critically ill patient, excluding procedure time. ED Disposition Clinical Impression: COPD with exacerbation Disposition: DC-01 TO HOME OR SELFCARE Is pt being admited?: No Does the pt Need Aspirin: No Condition: Stable Instructions: Chronic Obstructive Pulmonary Disease (ED), Chronic Obstructive Pulmonary Disease, [id number] Referrals: PRIMARY CARE, [Primary Care Provider] - 3-5 Days Time of Disposition: 13:27
--- NOTE | 2020-04-02 11:18 | XRay Report ---
CHEST 1 VIEW, 04/02/2020 11:01 AM CLINICAL INFORMATION/INDICATION: Respiratory distress COMPARISON: Chest radiograph, 03/12/2020 FINDINGS: SUPPORT DEVICES: None. HEART: The cardiac silhouette is normal in size. LUNGS/PLEURA: The lungs are clear of focal airspace disease or significant pleural effusion. ADDITIONAL FINDINGS: No additional acute findings. IMPRESSION: 1. No evidence of acute cardiopulmonary process. Signer Name: Janel Do MD Signed: 04/02/2020 11:14 AM Workstation Name: [email or web address]
[2020-04-02 11:24] LABS: Basophils % (Auto) 1.3 % (0.0-1.8); Eosinophils # (Auto) 0.4 K/mm3 (0.0-0.4); Hemoglobin 13.8 gm/dl (11.8-15.2); Lymphocytes # (Auto) 1.3 K/mm3 (1.2-5.4); Lymphocytes % (Auto) 34.8 % (13.4-35.0); Mean Corpuscular HGB Conc 32 % (32-34); Mean Corpuscular Volume 92 fl (84-94); Monocytes # (Auto) 0.3 K/mm3 (0.0-0.8); Monocytes % (Auto) 7.4 % (0.0-7.3); Platelet Count 248 K/mm3 (140-440); Red Blood Count 4.69 M/mm3 (3.65-5.03); Red Cell Distribution Width 15.2 % (13.2-15.2)
[2020-04-02 11:28] LABS: BUN/Creatinine Ratio 5; Blood Urea Nitrogen 5 mg/dL (9-20); Hemolysis Index 7
[2020-04-02 13:06] VITALS: BP 156/81
== END 2020-04-02 14:10 | disposition home or self-care (01) ==
LOC: ED 10:08
DX: J44.1 Chronic obstructive pulmonary disease with (acute) exacerbation (principal); F17.200 Nicotine dependence, unspecified, uncomplicated; F14.90 Cocaine use, unspecified, uncomplicated; Z79.899 Other long term (current) drug therapy
CPT/HCPCS: 36415; 71045; 80048; 85025; 94640; 94644

== ENCOUNTER 2020-04-15 20:36 | Emergency (ER) | payer SELFPAY ==
[2020-04-15] MEDS ORDERED: ALBUTEROL 2.5 MG/3 ML NEBU IH ONE ×2 (20:50→21:56)
--- NOTE | 2020-04-15 20:52 | Event Note ---
ED Screening Note Date of service: 04/15/20 Time: 20:51 ED Screening Note: This initial assessment/diagnostic orders/clinical plan/treatment(s) is/are subject to change based on patients health status, clinical progression and re- assessment by fellow clinical providers in the ED. Further treatment and workup at subsequent clinical providers discretion. Patient/guardian urged not to elope from the ED as their condition may be serious if not clinically assessed and managed. Initial orders include: This is a 59-year-old male he reports a history of COPD states over the last few days he has been using his nebulizer treatment at home with no improvement he is complaining of cough and shortness of breath denies any fever nausea vomiting no chest pain. Patient is not in any acute distress O2 sat is 94% on room air. Lungs with diminished breath sounds bilaterally. chest x-ray nebulizer treatment and basic lab work ordered.
[2020-04-15 21:04] VITALS: BP 152/74
[2020-04-15 21:08] LABS: Hematocrit 37.9 % (35.5-45.6); Hemoglobin 12.3 gm/dl (11.8-15.2); Mean Corpuscular HGB Conc 32 % (32-34); Mean Corpuscular Volume 91 fl (84-94); Platelet Count 292 K/mm3 (140-440); Red Blood Count 4.15 M/mm3 (3.65-5.03); Red Cell Distribution Width 14.3 % (13.2-15.2)
[2020-04-15 21:32] LABS: Alanine Aminotransferase 14 units/L (7-56); Albumin 3.6 g/dL (3.9-5); BUN/Creatinine Ratio 9; Blood Urea Nitrogen 10 mg/dL (9-20); Calcium 8.3 mg/dL (8.4-10.2); Hemolysis Index 2
--- NOTE | 2020-04-15 21:46 | XRay Report ---
XR chest routine 2V INDICATION / CLINICAL INFORMATION: SOB. COMPARISON: 04/02/2020 FINDINGS: SUPPORT DEVICES: None. HEART /PULMONARY VASCULATURE: No significant abnormality. LUNGS / PLEURA: No significant pulmonary or pleural abnormality. No pneumothorax. ADDITIONAL FINDINGS: No significant additional findings. IMPRESSION: 1. No acute findings. Signer Name: Rosendo Escalera MD Signed: 04/15/2020 9:41 PM Workstation Name: [id number]
[2020-04-15] MEDS ORDERED: methylPREDNISolone Sod Succinate 125 MG/2 ML INJ IV ONE (21:56)
[2020-04-15] MEDS ORDERED: IPRATROPIUM 0.02% NEBU 2.5 ML IH ONE (21:56)
[2020-04-15] MEDS ORDERED: MAGNESIUM SULFATE 2 GM/50 ML BAG IV ONE (21:56)
--- NOTE | 2020-04-15 21:59 | Emergency Department Report ---
ED Shortness of Breath HPI - General Chief Complaint: Dyspnea/Respdistress Stated Complaint: RUBI Time Seen by Provider: 04/15/20 21:52 Source: patient Mode of arrival: Ambulatory Limitations: No Limitations - History of Present Illness Initial Comments: 59-year-old male, history of COPD, presents to the ED for shortness of breath and wheezing for 1 week. Patient states no relief with nebulizer treatments at home. Patient reports tobacco use. States last cocaine use was 2 weeks ago. He reports associated cough, vomiting, diarrhea. Patient denies any fever, loss of smell or taste, body aches, known exposure to anyone who was tested positive for COVID-19. MD Complaint: shortness of breath -: week(s) (1) Severity: moderate Consistency: constant Improves With: nothing Worsens With: exertion Known History Of: COPD Treatments Prior to Arrival: bronchodilator - Related Data Home Oxygen Therapy: No Previous Rx's Medication Instructions Recorded Last Taken Type Acetaminophen [Acetaminophen TAB] 650 mg PO Q4H PRN tablet 03/14/20 Unknown Rx Azithromycin 500 mg PO DAILY #3 tablet 03/14/20 Unknown Rx Azithromycin [Zithromax TAB] 500 mg PO QHS #2 tablet 03/14/20 Unknown Rx Magnesium Hydroxide [Milk of 30 ml PO Q4H PRN oral.liqd 03/14/20 Unknown Rx Magnesia] Nicotine [Habitrol] 7 mg TD QDAY patch 03/14/20 Unknown Rx predniSONE 10 mg PO QDAY #21 tab 03/14/20 Unknown Rx ALBUTEROL NEB's [Proventil 0.083% 5 mg IH TID PRN #20 neb 04/02/20 Unknown Rx NEBS] Benzonatate [Tessalon Perles] 100 mg PO Q8HR #10 capsule 04/02/20 Unknown Rx DOXYCYCLINE Hyclate [Vibramycin 100 mg PO Q12HR #14 capsule 04/02/20 Unknown Rx CAP] predniSONE 10 mg PO .TAPER #21 tab 04/02/20 Unknown Rx Albuterol Sulfate [Proventil Hfa] 2 puff IH Q4HR PRN #1 hfa.aer.ad 04/15/20 Unknown Rx predniSONE [Deltasone] 50 mg PO QDAY #5 tab 04/15/20 Unknown Rx Allergies Allergy/AdvReac Type Severity Reaction Status Date / Time No Known Allergies Allergy Verified 04/02/20 10:42 ED Review of Systems ROS: Stated complaint: RUBI Other details as noted in HPI Comment: All other systems reviewed and negative Constitutional: denies: fever Respiratory: cough, shortness of breath, wheezing Cardiovascular: denies: chest pain Gastrointestinal: vomiting, diarrhea Musculoskeletal: denies: myalgia ED Past Medical Hx - Past Medical History Previous Medical History?: Yes Hx Congestive Heart Failure: No Hx Diabetes: No Hx Asthma: Yes Hx COPD: Yes - Surgical History Past Surgical History?: No - Social History Smoking Status: Current Every Day Smoker Substance Use Type: None - Medications Home Medications: Home Medications Medication Instructions Recorded Confirmed Last Taken Type Acetaminophen [Acetaminophen TAB] 650 mg PO Q4H PRN tablet 03/14/20 Unknown Rx Azithromycin 500 mg PO DAILY #3 tablet 03/14/20 Unknown Rx Azithromycin [Zithromax TAB] 500 mg PO QHS #2 tablet 03/14/20 Unknown Rx Magnesium Hydroxide [Milk of 30 ml PO Q4H PRN oral.liqd 03/14/20 Unknown Rx Magnesia] Nicotine [Habitrol] 7 mg TD QDAY patch 03/14/20 Unknown Rx predniSONE 10 mg PO QDAY #21 tab 03/14/20 Unknown Rx ALBUTEROL NEB's [Proventil 0.083% 5 mg IH TID PRN #20 neb 04/02/20 Unknown Rx NEBS] Benzonatate [Tessalon Perles] 100 mg PO Q8HR #10 capsule 04/02/20 Unknown Rx DOXYCYCLINE Hyclate [Vibramycin 100 mg PO Q12HR #14 capsule 04/02/20 Unknown Rx CAP] predniSONE 10 mg PO .TAPER #21 tab 04/02/20 Unknown Rx Albuterol Sulfate [Proventil Hfa] 2 puff IH Q4HR PRN #1 hfa.aer.ad 04/15/20 Unk nown Rx predniSONE [Deltasone] 50 mg PO QDAY #5 tab 04/15/20 Unknown Rx ED Physical Exam - General Limitations: No Limitations General appearance: alert - Head Head exam: Present: atraumatic, normocephalic - Eye Eye exam: Present: normal appearance - ENT ENT exam: Present: mucous membranes moist - Neck Neck exam: Present: normal inspection - Respiratory Respiratory exam: Present: decreased breath sounds, other (Tachypneic) - Cardiovascular Cardiovascular Exam: Present: normal rhythm, tachycardia - GI/Abdominal GI/Abdominal exam: Present: soft. Absent: distended, tenderness - Extremities Exam Extremities exam: Present: normal inspection - Neurological Exam Neurological exam: Present: alert, oriented X3 - Psychiatric Psychiatric exam: Present: normal affect, normal mood - Skin Skin exam: Present: warm, dry, intact, normal color ED Course Vital Signs 04/15/20 04/15/20 21:01 22:25 Temperature 98.7 F Pulse Rate 102 H Pulse Rate [ 108 H Bilateral Throughout] Respiratory 18 Rate Respiratory 20 Rate [Bilateral Throughout] Blood Pressure 152/74 [Left] O2 Sat by Pulse 94 Oximetry ED Medical Decision Making - Lab Data Result diagrams: 04/15/20 20:55 04/15/20 20:55 - Radiology Data Radiology results: report reviewed, image reviewed - Medical Decision Making 59-year-old male presents to ED with COPD exacerbation. Patient given nebulizer treatment, Solu-Medrol, mag sulfate. He is feeling much better at this time. Chest x-ray is negative. Will discharge home with prescriptions. Outpatient follow-up advised, return precautions given. - Differential Diagnosis COPD, pulmonary edema, pneumonia Critical care attestation.: If time is entered above; I have spent that time in minutes in the direct care of this critically ill patient, excluding procedure time. ED Disposition Clinical Impression: COPD with exacerbation Disposition: TO HOME OR SELFCARE Is pt being admited?: No Condition: Stable Instructions: Chronic Obstructive Pulmonary Disease Exacerbation, [id number], Chronic Obstructive Pulmonary Disease (ED) Prescriptions: predniSONE [Deltasone] 50 mg PO QDAY #5 tab Albuterol Sulfate [Proventil Hfa] 2 puff IH Q4HR PRN #1 hfa.aer.ad PRN Reason: Wheezing Referrals: PRIMARY CARE, [Primary Care Provider] - 3-5 Days [facility] [Provider Group] - 3-5 Days Time of Disposition: 23:09
== END 2020-04-15 23:25 | disposition home or self-care (01) ==
LOC: ED 20:36
DX: J44.1 Chronic obstructive pulmonary disease with (acute) exacerbation (principal); F17.200 Nicotine dependence, unspecified, uncomplicated; Z79.899 Other long term (current) drug therapy
CPT/HCPCS: 36415; 71046; 80053; 85027; 94640; 96365; 96375; 99284; J2930; J3475; 94644